=== PATIENT | female | born 1945 | race Caucasian/White ===

== ENCOUNTER → 2017-01-18 | Outpatient (CLI) | payer OTHER ==
[~2017-01-18] MED LIST: ACID CONTROL75 MG PO; BONIVA150 MG PO; BONIVA3 MG/3 ML IV; BUMETANIDE 1 MG1 M1; GYNODIOL1 MG PO; HYDROCODON-ACE1 EAC2 PO; HYDROCODON-ACE1 EAC5 PO; NORVASC 5 MG TAB5 MG PO; PHENERGAN 25 MG25 M1 PO; POTASSIUM20; PREDNISONE 5 MG5 MG PO; PROCARDIA XL60 MG PO; ZANTAC 150MG T150 M1 PO; [UNRECOGNIZED DRUG - OTHER] PO
--- NOTE | ~2017-01-18 | PFR/MVV ---
[facility] [place] [address] PULMONARY FUNCTION MVV/REPORT Name: TONY BUTLER Room #: REG [facility]#: [id number] Admission: 01/18/17 Attend Phys: Physician not on staff Discharge: Date of : 43 Report #: [id number] THIS REPORT FOR: //name// >> SPIROMETRY: (BTPS) Height: in cm Weight: lbs kg Exam Date: PRE-RX POST-RX PRED BEST %PRED BEST %PRED %CHG FVC LITERS . . . . . . FEV1 LITERS . . . . . . FEV1/FVC % . . . . . . WWB68-73% L/Sec . . . . . . PEF L/SEC . . . . . . FEF50/FIF50 UNITLESS . . . . . . MVV L/Min . . . f 1/Min . . . >> LUNG VOLUMES: (BTPS) PRE-RX POST-RX PRED AVG %PRED AVG %PRED %CHG VC Liters . . . . . . TLC Liters . . . . . . RV Liters . . . . . . RV/TLC % . . . . . . FRC PL Liters . . . . . . FRC N2 Liters . . . . . . ERV Liters . . . . . . IC Liters . . . . . . >> DIFFUSION: DLCO ml/Min/mmHg . . . . . . DL Nicholas ml/Min/mmHg . . . . . . DLCO/VA ml/Min/mmHg . . . . . . VA Liters . . . . . . COMMENTS: COMMENTS: >> RESISTANCE: [facility] [address] [place] [address] PULMONARY FUNCTION MVV/REPORT Name: TONY BUTLER Room #: JENN StanleyBrendan#: [id number] Admission: 01/18/17 Attend Phys: Physician not on staff Discharge: Date of : 43 Report #: [id number] PRE-RX PRED AVG %PRED Raw Total cmH20/L/Sec . . . Raw Insp cmH20/L/Sec . . . Raw Exp cmH20/L/Sec . . . Raw cmH20/L/Sec . . . Gaw L/Sec/cmH20 . . . sRaw cmH20 Sec . . . sGaw l/cmH20 Sec . . . Vtq Liters . . . # = OUTSIDE 95% CONFIDENCE INTERVAL CALIBRATION: PRED: 3.00 ACTUAL: EXP 3.01 INSP 3.02 IPS-OL10-06 [facility]-05 N-1804-4 >> INTERPRETATION/IMPRESSION: CC: Kevin WILKINS Physician staff DATE OF SERVICE: 01/18/2017 Full pulmonary function studies revealed normal lung volumes. Spirometry portion appeared normal. There was some improvement with bronchodilators; however, there is nothing to suggest airflow obstruction, this should be reversible by bronchodilator medications. Would correlate with clinical evaluation. Lung volumes, otherwise normal. DLCO appeared moderately reduced. By: Emory Moran MD /nt
== END ==
LOC: RAD 07:15
DX: Z12.31 Encounter for screening mammogram for malignant neoplasm of breast (principal); R05 Cough

== ENCOUNTER → 2017-02-03 | Outpatient (CLI) | payer OTHER ==
[2017-02-03 13:53] LABS: CALCIUM 8.7 mg/dL (8.5-10.1); POTASSIUM 3.9 mmol/L (3.5-5.1)
== END ==
LOC: CAT 13:02
PROVIDERS: Internal Medicine
DX: R93.8 Abnormal findings on diagnostic imaging of other specified body structures (principal); J44.9 Chronic obstructive pulmonary disease, unspecified

== ENCOUNTER 2019-03-20 13:38 | Emergency (ER) | payer OTHER ==
[~2019-03-20] VITALS: Ht 170.2 cm; Wt 130.2 kg
[2019-03-20 14:56] LABS: HEMATOCRIT 32.4 % (37.0-47.0); HEMOGLOBIN 10.3 gm/dL (12.0-15.0); MCHC 31.8 g/dL (28.0-37.0); MCV 88.2 fL (80.0-100.0); PLATELET COUNT 350 thou/uL (150-400); RBC 3.67 mil/uL (4.20-5.00); RDW 15.1 % (10.5-14.5); WBC 11.2 thou/uL (4.0-11.0)
[2019-03-20] MEDS ORDERED: CELEXA 20 MG TA20 MG PO (14:59)
[2019-03-20 15:05] LABS: ANION GAP 8 mmol/L (7-16); BUN 11 mg/dL (7-18); CALCIUM 9.5 mg/dL (8.5-10.1); CHLORIDE 103 mmol/L (98-107); CO2 29 mmol/L (21-32); GLUCOSE 124 mg/dL (74-106); POTASSIUM 3.7 mmol/L (3.5-5.1); SODIUM 140 mmol/L (136-145)
[2019-03-20 15:12] LABS: TROPONIN-I <0.06 ng/mL (<0.06)
[2019-03-20 15:19] LABS: ABSOLUTE NEUTROPHILS 6.6 thou/uL (1.4-8.2); PLATELET ESTIMATE NORMAL
[2019-03-20] MEDS ORDERED: ULTRAM 50MG TAB50 MG PO (16:48)
[2019-03-20] MEDS ORDERED: MOBIC7.5 MG PO (16:48)
--- NOTE | 2019-03-20 17:10 | EKG ---
[address] [place] [address] [place] [address] ELECTROCARDIOGRAM REPORT Name: TONY BUTLER [id number] Admission: 03/20/19 Attend Phys: Discharge: Date of : 43 Report #: [id number] THIS REPORT FOR: //name// [facility] ED Test Date: 2019-03-20 Test Time: 14:34:08 Pat Name: TONY BUTLER Department: Room: Gender: F Arborist: LLUVIA : 1945 Requested By: Erasmo Christine Order Number: [id number] MD: Moreno Ortiz Measurements Intervals [place] Rate: 68 P: 21 [place]: 166 QRS: -38 QRSD: 102 T: 37 QT: 429 QTc: 457 Interpretive Statements Sinus rhythm Left axis deviation Abnormal R-wave progression, late transition Compared to ECG 11/01/2011 00:33:29 Left-axis deviation now present Electronically Signed On 03-20-2019 17:09:43 MANAGER INTERN by Moreno Ortiz [email or web address] <ELECTRONICALLY SIGNED> By: Moreno Ortiz MD, [facility] 03/20/19 1709 1434 143 Moreno Ortiz MD, FACC /EPI
[2019-03-20 17:16] VITALS: BP 133/47
== END 2019-03-20 17:15 | disposition home or self-care (01) ==
LOC: ER 13:38
PROVIDERS: Emergency Medicine
DX: G54.0 Brachial plexus disorders (principal); R07.9 Chest pain, unspecified; I10 Essential (primary) hypertension; E66.01 Morbid (severe) obesity due to excess calories; G43.909 Migraine, unspecified, not intractable, without status migrainosus; F17.210 Nicotine dependence, cigarettes, uncomplicated; Z68.41 Body mass index [BMI] 40.0-44.9, adult; Z90.49 Acquired absence of other specified parts of digestive tract; Z88.0 Allergy status to penicillin; Z88.6 Allergy status to analgesic agent; Z88.8 Allergy status to other drugs, medicaments and biological substances

== ENCOUNTER → 2019-04-20 | Outpatient (CLI) | payer OTHER ==
[~2019-04-20] MED LIST changes: +CELEXA 20 MG TA20 MG PO; +MOBIC7.5 MG PO; +ULTRAM 50MG TAB50 MG PO
== END ==
LOC: MRI 04-17 09:25
DX: M51.36 Other intervertebral disc degeneration, lumbar region (principal); M43.17 Spondylolisthesis, lumbosacral region; M51.26 Other intervertebral disc displacement, lumbar region; J43.8 Other emphysema; M48.54XA Collapsed vertebra, not elsewhere classified, thoracic region, initial encounter for fracture; M12.88 Other specific arthropathies, not elsewhere classified, other specified site; M48.061 Spinal stenosis, lumbar region without neurogenic claudication; M51.27 Other intervertebral disc displacement, lumbosacral region

== ENCOUNTER 2019-09-20 11:48 | Emergency (ER) | payer OTHER ==
[~2019-09-20] VITALS: Ht 172.7 cm; Wt 126.1 kg
[2019-09-20 13:30] LABS: ABSOLUTE NEUTROPHILS 11.9 thou/uL (1.4-8.2); BASOPHILS 0.8 % (0.0-2.0); EOSINOPHILS 0.6 % (0.0-3.0); HEMATOCRIT 37.6 % (37.0-47.0); HEMOGLOBIN 12.1 gm/dL (12.0-15.0); LYMPHOCYTES 22.9 % (24.0-44.0); MCHC 32.1 g/dL (28.0-37.0); MCV 87.1 fL (80.0-100.0); MONOCYTES 9.6 % (1.0-8.0); PLATELET COUNT 385 thou/uL (150-400); POLYS 66.1 % (36.0-66.0); RBC 4.32 mil/uL (4.20-5.00); RDW 15.1 % (10.5-14.5)
[2019-09-20 13:36] LABS: ANION GAP 4 mmol/L (7-16); BUN 23 mg/dL (7-18); CHLORIDE 98 mmol/L (98-107); CO2 31 mmol/L (21-32); GLUCOSE 102 mg/dL (74-106); SODIUM 133 mmol/L (136-145)
[2019-09-20 13:38] LABS: POTASSIUM 5.7 mmol/L (3.5-5.1)
[2019-09-20 13:45] LABS: ALBUMIN 3.6 g/dL (3.4-5.0); SGOT 28 U/L (15-37); SGPT 21 U/L (30-65); TOTAL BILIRUBIN 0.4 mg/dL (<0.1-1.0); TOTAL PROTEIN 8.9 g/dL (6.4-8.2); TROPONIN-I <0.06 ng/mL (<0.06)
[2019-09-20] MEDS ORDERED: DOXYCYCLINE 10100 MG PO (15:47)
[2019-09-20 16:24] VITALS: BP 151/80
--- NOTE | 2019-09-21 07:45 | EKG ---
[facility] [place] [address] ELECTROCARDIOGRAM REPORT Name: TONY BUTLER Room #: DEP [facility]#: [id number] Admission: 09/20/19 Attend Phys: Discharge: 09/20/19 Date of : 43 Report #: [id number] THIS REPORT FOR: cc: Kevin Perez,Kevin Guzman,Moreno Goodman MD [facility] THIS REPORT FOR: //name// [facility] ED Test Date: 2019-09-20 Test Time: 12:31:33 Pat Name: TONY BUTLER Department: Room: Gender: F Resourcing Consultant: [place] : 1945 Requested By: Derek Rene Order Number: [id number] MD: Moreno Ortiz Measurements Intervals [place] Rate: 77 P: 19 [place]: 164 QRS: -44 QRSD: 97 T: 54 QT: 387 QTc: 438 Interpretive Statements Sinus rhythm Left anterior fascicular block Poor R wave progression Compared to ECG 03/20/2019 14:34:08 No significant change was found Electronically Signed On 09-21-2019 7:43:14 CDT by Moreno Ortiz [email or web address] <ELECTRONICALLY SIGNED> By: Moreno Ortiz MD, FACC 09/21/19 0743 1231 1231 Moreno Ortiz MD, [facility] /EPI
== END 2019-09-20 16:20 | disposition home or self-care (01) ==
LOC: ER 11:48
PROVIDERS: Physician Assistant
DX: J18.9 Pneumonia, unspecified organism (principal); I10 Essential (primary) hypertension; E66.01 Morbid (severe) obesity due to excess calories; G43.909 Migraine, unspecified, not intractable, without status migrainosus; Z90.49 Acquired absence of other specified parts of digestive tract; G40.909 Epilepsy, unspecified, not intractable, without status epilepticus; Z79.899 Other long term (current) drug therapy; Z79.82 Long term (current) use of aspirin; Z88.6 Allergy status to analgesic agent; Z88.0 Allergy status to penicillin; Z88.8 Allergy status to other drugs, medicaments and biological substances; Z87.891 Personal history of nicotine dependence; Z98.890 Other specified postprocedural states

== ENCOUNTER → 2019-10-19 | Outpatient (CLI) | payer OTHER ==
[~2019-10-19] MED LIST changes: +DOXYCYCLINE 10100 MG PO
== END ==
LOC: RAD 09-19 14:01
DX: N64.89 Other specified disorders of breast (principal); R92.8 Other abnormal and inconclusive findings on diagnostic imaging of breast; N63.20 Unspecified lump in the left breast, unspecified quadrant

== ENCOUNTER → 2020-04-23 | Outpatient (CLI) | payer OTHER ==
--- NOTE | 2020-04-23 10:53 | 2DMMODE ---
[facility] [place] [address] 2 D/M-MODE ECHOCARDIOGRAM Name: TONY BUTLER Room #: REG DEIRDREAldo Garg#: [id number] Admission: 04/23/20 Attend Phys: Kevin Perez DO Discharge: Date of : 43 Report #: [id number] THIS REPORT FOR: cc: Kevin Perez,Kevin Valadez,Preston Garcia MD ~ APPROVED REPORT Study performed: 04/23/2020 08:53:49 EXAM: Comprehensive 2D, Doppler, and color-flow Echocardiogram Patient Location: Echo lab Room #: 2 Status: routine BSA: 2.34 HR: 82 bpm BP: 140/84 mmHg Rhythm: NSR Other Information Study Quality: Adequate Indications Chest Pain 2D Dimensions RVDd: 40.40 mm IVSd: 11.45 (7-11mm) LVOT Diam: 21.64 (18-24mm) LVDd: 41.19 mm PWd: 11.59 (7-11mm) Ascending Ao: 31.57 (22-36mm) LVDs: 24.52 (25-40mm) Aortic Root: 34.59 mm IVC: 16.00 mm Volumes Left Atrial Volume (Systole) Single Plane 4CH: 50.03 mL Single Plane 2CH: 85.25 mL LA ESV Index: 32.84 mL/m2 Aortic Valve AoV Peak Tristan.: 1.73 m/s AO Peak Gr.: 11.99 mmHg LVOT Max P.09 mmHg LVOT Max V: 1.51 m/s BRYCE Vmax: 3.[address] [facility] [address] [address] 2 D/M-MODE ECHOCARDIOGRAM Name: TONY BUTLER Krish Room #: REG [facility]#: [id number] Admission: 04/23/20 Attend Phys: Kevin Perez DO Discharge: Date of : 43 Report #: [id number] Mitral Valve E/A Ratio: 0.7 MV Decel. Time: 245.29 ms MV E Max Tristan.: 0.74 m/s MV A Tristan.: 1.02 m/s MV PHT: 71.13 ms IVRT: 110.73 ms Pulmonary Valve PV Peak Tristan.: 1.13 m/s PV Peak Gr.: 5.13 mmHg Pulmonary Vein P Vein S: 0.65 m/s P Vein A: 0.29 m/s P Vein D: 0.35 m/s P Vein A Dur.: 147.6 msec P Vein S/D Ratio: 1.86 Tricuspid Valve TR Peak Tristan.: 2.99 m/s TR Peak Gr.: 35.75 mmHg PA Pressure: 40.75 mmHg Left Ventricle The left ventricle is normal size. There is normal LV segmental wall motion. There is normal left ventricular wall thickness. The left ventricular systolic function is normal. LVEF is 60%. Grade I - abnormal relaxation pattern. Right Ventricle The right ventricle is normal size. The right ventricular systolic function is normal. Atria The left atrium size is normal. The right atrium size is normal. Aortic Valve The aortic valve is normal in structure. Aortic valve is calcified. No aortic regurgitation is present. There is no aortic valvular stenosis. Mitral Valve Mitral valve leaflets are mildly calcified. There is no mitral valve regurgitation noted. No evidence of mitral valve stenosis. Tricuspid Valve The tricuspid valve is normal in structure. Mild tricuspid [facility] [address] [address] 2 D/M-MODE ECHOCARDIOGRAM Name: BUTLERTONY Bender Room #: [facility]#: [id number] Admission: 04/23/20 Attend Phys: Kevin Perez DO Discharge: Date of : 43 Report #: [id number] regurgitation. Estimated PAP 38mmHg. Pulmonic Valve The pulmonary valve is normal in structure. There is no pulmonic valvular regurgitation. Great Vessels The aortic root is normal in size. The ascending aorta is normal in size. IVC is normal in size and collapses >50% with inspiration. Pericardium There is no pericardial effusion. <Conclusion> The left ventricle is normal size. There is normal left ventricular wall thickness. The left ventricular systolic function is normal. Grade I - abnormal relaxation pattern. The right ventricle is normal size. The left atrium size is normal. Aortic valve is calcified. There is no mitral valve regurgitation noted. Mild tricuspid regurgitation. Estimated PAP 38mmHg. <ELECTRONICALLY SIGNED> By: Preston Hernandez MD 04/23/20 1053 52 52 Preston Hernandez MD /INF
== END ==
LOC: MRI 08:50
PROVIDERS: ATTEND Internal Medicine
DX: N28.1 Cyst of kidney, acquired (principal); R06.00 Dyspnea, unspecified; R16.0 Hepatomegaly, not elsewhere classified; R10.9 Unspecified abdominal pain